=== PATIENT | female | born 1960 | race African-American/Black ===

== ENCOUNTER → 2019-11-10 | Outpatient (CLI) | payer OTHER | LOC: HYPER 08:00 | PROVIDERS: ATTEND Emergency Medicine | DX: T24.331A Burn of third degree of right lower leg, initial encounter (principal); T31.0 Burns involving less than 10% of body surface; Z79.82 Long term (current) use of aspirin; Y27.8XXA Contact with other hot objects, undetermined intent, initial encounter; Y93.89 Activity, other specified; Y92.89 Other specified places as the place of occurrence of the external cause; Y99.8 Other external cause status ==